=== PATIENT | male | born 1930 | race Hispanic/Latino ===

== ENCOUNTER 2019-05-01 05:30 | Day surgery (SDC) | payer OTHER ==
[~2019-05-01] VITALS: Ht 170.2 cm; Wt 59.9 kg
[2019-05-01] MEDS ORDERED: SODIUM CHLORIDE 0.9% 1000ML 1,000 ML IV ONE (06:00)
[2019-05-01 06:27] VITALS: BP 113/50
[2019-05-01] MEDS ORDERED: TAMS-1 PO (06:37)
[2019-05-01] MEDS ORDERED: SITA50TA PO (06:37)
[2019-05-01] MEDS ORDERED: METF-446 PO (06:37)
[2019-05-01] MEDS ORDERED: ATOR40TA71 PO (06:37)
[2019-05-01] MEDS ORDERED: BISA5TAB12 PO (06:37)
[2019-05-01] MEDS ORDERED: AMLO5TAB9 PO (06:37)
[2019-05-01] MEDS ORDERED: POLY17PO4 PO (06:37)
[2019-05-01] MEDS ORDERED: LEVE500T19 PO (06:37)
[2019-05-01] MEDS ORDERED: DOXA4TAB3 PO (06:37)
[2019-05-01] MEDS ORDERED: LISI40TA4 PO (06:37)
[2019-05-01] MEDS ORDERED: PROPOFOL 10 MG/ML 20ML VIAL IV ONE ×2 (06:46→08:46)
[2019-05-01] MEDS ORDERED: EPHEDRINE SULFATE 50 MG/ML AMPULE ONE (08:49)
[2019-05-01 09:14] VITALS: BP 83/27
[2019-05-01 09:18] VITALS: BP 105/39
[2019-05-01 09:26] VITALS: BP 110/35
[2019-05-01 09:32] VITALS: BP 130/53
== END 2019-05-01 09:35 | disposition home or self-care (01) ==
LOC: DAH 05:30 → ENDO 05:30
PROVIDERS: ATTEND Internal Medicine Gastroenterology
DX: D12.2 Benign neoplasm of ascending colon (principal); D12.3 Benign neoplasm of transverse colon; D12.4 Benign neoplasm of descending colon; K29.50 Unspecified chronic gastritis without bleeding; K57.30 Diverticulosis of large intestine without perforation or abscess without bleeding; K64.1 Second degree hemorrhoids; K20.9 Esophagitis, unspecified; K44.9 Diaphragmatic hernia without obstruction or gangrene; K31.89 Other diseases of stomach and duodenum; I10 Essential (primary) hypertension; E78.5 Hyperlipidemia, unspecified; E11.9 Type 2 diabetes mellitus without complications; D50.9 Iron deficiency anemia, unspecified; I25.2 Old myocardial infarction; I25.10 Atherosclerotic heart disease of native coronary artery without angina pectoris; Z79.84 Long term (current) use of oral hypoglycemic drugs; Z79.899 Other long term (current) drug therapy; Z79.4 Long term (current) use of insulin; Z90.49 Acquired absence of other specified parts of digestive tract; Z95.5 Presence of coronary angioplasty implant and graft; Z98.49 Cataract extraction status, unspecified eye; Z98.890 Other specified postprocedural states
CPT/HCPCS: 43239; 45380; 45385; 82948; 88305; 93005; A4606; J2704; J3490; J7030